=== PATIENT | male | born 1980 | race Caucasian/White ===

== ENCOUNTER 2018-09-14 10:27 | Day surgery (SDC) | payer OTHER, SELFPAY ==
[2018-09-14] MEDS: SODIUM CHLORIDE 0.9% 1,000 ML 42 ML IV (11:15)
[2018-09-14 11:17] VITALS: BP 145/94; PULSE 110; RESP 16; TEMP 36.3; O2SAT 100; BMI 28.3
--- NOTE | 2018-09-14 13:30 | PM.OP.ENDO ---
Operative Date/Time/Diagnoses Date of procedure: 09/14/18 Time of procedure: 13:30 Pre-op diagnosis: See indication and findings Post-op diagnosis: same Procedure & Clinicians Study performed: Colonoscopy Same procedure as scheduled: Yes Indications: Abdominal pain Surgeon: Clark Mata Procedure Notes Procedure in detail: After informed consent was obtained the patient was placed in left lateral decubitus position. The video colonoscope was introduced the rectum slowly advanced to the cecum. Preparation was good. On slow withdrawal mucosa was carefully examined. The scope was removed. The patient tolerated procedure well. Blood loss none Complications none Sedation Total sedation time 21 min Versed 10 mg fentanyl 150 mcg Findings 1. Normal colonoscopy to cecum Patient should follow up either with Nataliia Rodriguez in [place] or with myself for Dr. Wheeler here in [place] if symptoms continue. The patient certainly stick with fiber supplements.
--- NOTE | 2018-09-14 13:31 | PM.HP.1 ---
History of Present Illness Date Patient Seen: 09/14/18 Time Patient Seen: 13:33 Chief complaint: COLONSCOPY [id number] Narrative: Change in bowel habits and abdominal discomfort rule out colitis Patient History Family & Social History Social History: household members spouse Meds Home Medications Medication Instructions Recorded Confirmed Type No Known Home Medications 09/14/18 09/14/18 History Allergies Allergy/AdvReac Type Severity Reaction Status Date / Time amoxicillin Allergy Intermediate Rash Verified 09/14/18 11:27 Exam Vital Signs (past 8 hours): - 09/14/18 11:17 Temperature 97.3 F L Pulse Rate 110 H Respiratory Rate 16 Blood Pressure 145/94 H Pulse Oximetry 100 Oxygen Delivery Method Room Air Narrative Exam Narrative: Oropharynx free of lesions Chest clear to auscultation percussion cardiac exam reveals no S3 or murmur Assessment & Plan Plan: Assessment/Plan Narrative: Change in bowel habits and abdominal discomfort. Rule out underlying colitis. Risks, benefits, alternatives have explained
--- NOTE | 2018-09-14 13:34 | P.HP_ITS ---
History of Present Illness Date Patient Seen: 09/14/18 Time Patient Seen: 13:33 Chief complaint: COLONSCOPY [id number] Narrative: Change in bowel habits and abdominal discomfort rule out colitis Patient History Family & Social History Social History: household members spouse Meds Home Medications Medication Instructions Recorded Confirmed Type No Known Home Medications 09/14/18 09/14/18 History Allergies Allergy/AdvReac Type Severity Reaction Status Date / Time amoxicillin Allergy Intermediate Rash Verified 09/14/18 11:27 Exam Vital Signs (past 8 hours): - 09/14/18 11:17 Temperature 97.3 F L Pulse Rate 110 H Respiratory Rate 16 Blood Pressure 145/94 H Pulse Oximetry 100 Oxygen Delivery Method Room Air Narrative Exam Narrative: Oropharynx free of lesions Chest clear to auscultation percussion cardiac exam reveals no S3 or murmur Assessment & Plan Plan: Assessment/Plan Narrative: Change in bowel habits and abdominal discomfort. Rule out underlying colitis. Risks, benefits, alternatives have explained
[2018-09-14] MEDS: fentaNYL 250 MCG/5 ML INJ IV (13:58)
[2018-09-14] MEDS: MIDAZOLAM 5 MG/5 ML VIAL IV (13:59)
[2018-09-14 14:03] VITALS: BP 122/84; PULSE 93; RESP 14; TEMP 36.9; O2SAT 95
[2018-09-14 14:18] VITALS: BP 119/78; PULSE 87; RESP 14; TEMP 36.6; O2SAT 98
== END 2018-09-14 14:34 | disposition home or self-care (01) ==
PROVIDERS: PCP General Practice; Visit Provider Internal Medicine Gastroenterology
PROC: 0DJD8ZZ Inspection of Lower Intestinal Tract, Via Natural or Artificial Opening Endoscopic (ICD-10-PCS; CPT 45378; principal; 2018-09-14 13:00)
DX: F17.210 Nicotine dependence, cigarettes, uncomplicated (principal); R19.4 Change in bowel habit
CPT/HCPCS: 45378; J2250; J3010